=== PATIENT | female | born 2000 | race Two or more races ===

== ENCOUNTER 2024-10-31 13:32 | Emergency (ER) | payer BC ==
[~2024-10-31] VITALS: Ht 157.5 cm; Wt 90.7 kg
[2024-10-31 13:41] VITALS: BP 134/77; TEMP 98.1; O2SAT 99
[2024-10-31] MEDS ORDERED: GUAI120L56 PO (14:01)
== END 2024-10-31 14:43 | disposition home or self-care (01) ==
LOC: ER 13:40
DX: J06.9 Acute upper respiratory infection, unspecified (principal); R05.9 Cough, unspecified; R09.81 Nasal congestion